=== PATIENT | male | born 2000 | race Two or more races ===

== ENCOUNTER 2025-03-03 15:09 | Emergency (ER) | payer OTHER ==
[~2025-03-03] VITALS: Ht 182.9 cm; Wt 72.6 kg
[2025-03-03] MEDS ORDERED: KETOROLAC TROMETHAMINE 60 MG VIAL IM ONE ×2 (19:15→19:55)
== END 2025-03-03 22:55 | disposition home or self-care (01) ==
LOC: ER 16:33
DX: S60.051A Contusion of right little finger without damage to nail, initial encounter (principal); S60.031A Contusion of right middle finger without damage to nail, initial encounter; W22.8XXA Striking against or struck by other objects, initial encounter; Y93.89 Activity, other specified; Y92.89 Other specified places as the place of occurrence of the external cause
CPT/HCPCS: 73130; 96372; 99283; J1885